=== PATIENT | female | born 1975 | race Caucasian/White ===

== ENCOUNTER 2020-12-19 06:34 | Day surgery (SDC) | payer OTHER, MEDICAID, SELFPAY ==
[2020-10-06 09:31] VITALS: BMI 32.2
--- NOTE | 2020-10-09 10:15 | P.CONAN_ITS ---
HPI - Anesthesia Eval Consult details Narrative: 45yo F for Colonoscopy [facility] Past Medical History Medical History (Updated 10/06/20 @ 09:15 by Allison Oliver) Congenital deafness Surgical History Surgical History (Updated 10/06/20 @ 09:15 by Allison Oliver) History of cochlear implant History of nasal surgery Hx of craniotomy Social History Social History Smoking Status: Unknown if ever smoked Use of substances other than those prescribed or required for medical reasons: No Meds Allergies Allergy/AdvReac Type Severity Reaction Status Date / Time phenytoin [From Dilantin] Allergy Unknown Verified 10/06/20 09:31 Home Medications Medication Instructions Recorded Confirmed Type No Known Home Meds 10/06/20 10/06/20 History Exam Exam Date and Time: October 09, 2020 1015 Height,Weight and Vital Signs: Height 5 ft 4 in Weight 85.275 kg Assessment and Plan Assessment Anesthesia Assessment: Chart Reviewed
--- NOTE | 2020-12-18 10:23 | P.CONAN_ITS ---
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 [facility] Past Medical History Medical History (Updated 10/06/20 @ 09:15 by Allison Oliver) Congenital deafness Surgical History Surgical History (Updated 10/06/20 @ 09:15 by Allison Oliver) History of cochlear implant History of nasal surgery Hx of craniotomy Social History Social History Smoking Status: Unknown if ever smoked Use of substances other than those prescribed or required for medical reasons: No Advance Directives: No Advance Directives Information Provided: No Meds Allergies Allergy/AdvReac Type Severity Reaction Status Date / Time phenytoin [From Dilantin] Allergy Unknown Verified 10/06/20 09:31 Home Medications Medication Instructions Recorded Confirmed Last Taken Type No Known Home Meds 10/06/20 10/06/20 Unknown History Exam Exam Date and Time: December 18, 2020 1023 Height,Weight and Vital Signs: Height 5 ft 4 in Weight 85.275 kg Assessment and Plan Assessment Anesthesia Assessment: Chart Reviewed
[2020-12-19 07:00] VITALS: BP 105/69; PULSE 77; RESP 16; TEMP 36.9; O2SAT 97
[2020-12-19 07:04] LABS: UPreg QC Valid YES; Urine Pregnancy NEGATIVE (NEGATIVE)
[2020-12-19] MEDS: Lactated Ringers 1,000 ML 100 ML IVCONT (07:19)
[2020-12-19 08:32] VITALS: BP 96/41; PULSE 66; RESP 16; TEMP 36.4; O2SAT 96
--- NOTE | 2020-12-19 08:39 | PM.OP ---
Brief Operative Note Date of Service: 12/19/20 Pre-op diagnosis: Rectal bleed Post-op diagnosis: other (Colon polyps) Procedure: Colonoscopy to the cecum with snare polypectomy, placement of Resolution clip on cecal polypectomy site, and biopsy/removal of polyps Surgeon: Wilfredo Orantes Anesthesia: MAC Estimated blood loss (mL): 4.0 Pathology: other (A. Small cecal polyp near appendiceal orifice B. Larger cecal polyp C. Polyps at 20cm D. Rectal polyp) Condition: stable Disposition: PACU
[2020-12-19 08:47] VITALS: BP 99/57; PULSE 68; RESP 16; TEMP 36.4; O2SAT 95
--- NOTE | 2020-12-19 09:20 | OP_ITS ---
SURGEON: Wilfredo Orantes MD INDICATIONS: The patient presents for evaluation of intermittent hematochezia. PREOPERATIVE DIAGNOSIS: Hematochezia. POSTOPERATIVE DIAGNOSIS: PROCEDURE PERFORMED: Colonoscopy to the cecum and terminal ileum with snare polypectomy, biopsy and removal of polyps, and placement of 1 resolution clip on the cecal polypectomy site. Full consent has been obtained from her for this, including risks of bleeding and perforation. ESTIMATED BLOOD LOSS: COMPLICATIONS: ANESTHESIA: Monitored anesthesia care. ASSISTANTS: SPECIMENS: POSTOPERATIVE DIAGNOSES: Hematochezia, colon polyps, internal hemorrhoids. DESCRIPTION OF PROCEDURE: The patient was placed in the left lateral decubitus position. The digital rectal exam revealed no abnormalities. The Olympus video pediatric colonoscope was entered into the rectum advanced easily to the cecum. Once in the cecum, I did identify cecal pouch with appendiceal orifice and a normal-appearing ileocecal valve. The terminal ileum was cannulated and appeared normal. The scope was withdrawn back in the colon. Just adjacent to the appendiceal orifice, was an approximately 4 mm polyp, which was biopsied and completely removed with cold biopsy forceps. Also in the cecum, was a larger approximately 1.5 cm polyp on a short stalk, which was snared and recovered by bringing it out in a retrieval net. The scope was advanced back to the polypectomy site, which appeared clean, without any sign of residual polyp nor bleeding. I did place a single resolution clip on the polypectomy site with good deployment and good hemostasis. The remainder of the cecum appeared normal. The scope was then slowly withdrawn assessing all mucosal surfaces carefully. Preparation was excellent. At 20 cm, were 2 approximately 3 or 4 mm polyps, which were each biopsied and completely removed with cold biopsy forceps and placed in the same container. I did not visualize any sign of colitis nor angiodysplasia. In the rectum, in the retroflexed position, was an approximately 8 mm polyp, which was snared and recovered by suction. The polypectomy site appeared clean, without any sign of residual polyp nor bleeding. Small internal hemorrhoids were noted as well. The scope was straightened and withdrawn from the patient. She tolerated the procedure well and was returned to recovery area in stable condition. IMPRESSION: 1. Colon polyps, status post snare polypectomy, and biopsy removal. 2. Placement of resolution clips on cecal polypectomy site. 3. Internal hemorrhoids. PLAN: The results of the pathology will be checked. Given the larger cecal polyp and her relatively young age, I would recommend a repeat colonoscopy in 3 years for further surveillance. She was advised not to use any aspirin and NSAIDs for 1 week. She was advised to see me again later in the year in relation to her elevated LFTs, and need for a followup CAT scan of the liver. MD RENAN Zamorano/JULIUS / [id number]
== END 2020-12-19 09:25 | disposition home or self-care (01) ==
PROVIDERS: Nurse Practitioner; PCP Nurse Practitioner; Visit Provider Internal Medicine
PROC: 0DJD8ZZ Inspection of Lower Intestinal Tract, Via Natural or Artificial Opening Endoscopic (ICD-10-PCS; CPT 45378; principal; 2020-12-19 07:30)
DX: K62.5 Hemorrhage of anus and rectum (principal); D12.0 Benign neoplasm of cecum; D12.5 Benign neoplasm of sigmoid colon; D12.8 Benign neoplasm of rectum; K64.8 Other hemorrhoids; K76.9 Liver disease, unspecified; H90.5 Unspecified sensorineural hearing loss; Z88.8 Allergy status to other drugs, medicaments and biological substances
CPT/HCPCS: 45385; 45380; 81025; 88305

== ENCOUNTER 2021-09-22 10:04 | Outpatient (REF) | payer OTHER, MEDICAID, SELFPAY ==
[2021-09-22 14:26] LABS: MANUAL DIFF FLAG NO
[2021-09-22 14:38] LABS: Basophils Percent Auto 0.5 % (0-2); Eosinophils Absolute Auto 0.2 X10*3/uL (0.0-0.4); Eosinophils Percent Auto 1.9 % (0-4); Hematocrit 44.8 % (37.0-47.0); Hemoglobin 14.8 g/dl (12.0-16.0); Imm Gran Abs Auto 0.07 X10*3/uL (0.00-0.03); Imm Gran Pct Auto 0.9 % (0.0-0.4); Lymphocytes Absolute Auto 2.5 X10*3/uL (1.2-4.9); Mean Corpuscular Hemoglobin 28.7 pg (27.0-33.0); Mean Platelet Volume 10.1 fL (9.4-12.3); Monocytes Absolute Auto 0.4 X10*3/uL (0.1-1.2); Monocytes Percent Auto 4.5 % (2-11); Neutrophils Absolute Auto 4.8 x10*3/uL (2.0-8.3); Neutrophils Percent Auto 60.2 % (45-73); Platelet Count 358 X10*3/uL (160-400); Red Blood Count 5.15 X10*6/uL (4.20-5.50); Red Cell Distribution Width 12.2 % (11.0-16.0); White Blood Count 7.9 X10*3/uL (4.8-10.8)
[2021-09-22 15:06] LABS: Alanine Aminotransferase 40 U/L (0-31); Alkaline Phosphatase 90 U/L (39-117); Aspartate Amino Transferase 37 U/L (5-31); Bilirubin Direct < 0.2 mg/dL (0.0-0.5); Bilirubin Total 0.4 mg/dL (0.0-1.0); Blood Urea Nitrogen 11 mg/dL (9-16); C Reactive Protein 1.06 mg/dL (< or = 0.50); Estimated Glomerular Filt Rate > 60; Iron 118 mcg/dL (30-160); Percent Iron Saturation 32 % (15-50); Total Iron Binding Capacity 373 mcg/dL (228-428); Unsaturated Iron Binding 255 ug/dL
[2021-09-22 15:13] LABS: Erythrocyte Sedimentation Rate 12 MM/HR (0-20)
[2021-09-22 15:27] LABS: Ferritin 80 ng/mL (10-250)
[2021-09-24 11:36] LABS: Alpha 1 Anti-trypsin 142 mg/dL (83-199)
[2021-09-24 11:55] LABS: Alpha Fetoprotein 2.4 ng/mL
[2021-09-24 12:57] LABS: Anti Nuclear Antibody Screen NEGATIVE (NEGATIVE)
[2021-09-25 15:56] LABS: Mitochondrial Antibodies NEGATIVE (NEGATIVE)
[2021-09-25 22:01] LABS: Smooth Muscle Antibody <20 U (<20)
== END 2021-09-22 10:05 | disposition home or self-care (01) ==
LOC: HO.10HDL 10:04
PROVIDERS: Visit Provider Internal Medicine
DX: R93.2 Abnormal findings on diagnostic imaging of liver and biliary tract (principal); K76.9 Liver disease, unspecified; R74.8 Abnormal levels of other serum enzymes
CPT/HCPCS: 36415; 80076; 82103; 82105; 82378; 82565; 82728; 83540; 84520; 85025; 85652; 86038; 86039; 86140; 86255; 86256

== ENCOUNTER 2021-12-07 08:29 | Outpatient (REF) | payer OTHER, MEDICAID, SELFPAY ==
--- NOTE | ~2021-12-07 | CT_ITS ---
EXAMINATION: CT ABDOMEN AND PELVIS WITHOUT AND WITH CONTRAST CLINICAL INFORMATION: Liver disease. Hemangioma. COMPARISON: None TECHNIQUE: Multidetector volumetric imaging was performed of the abdomen and pelvis before and after the IV administration of 85 mL of Omnipaque 300 intravenous contrast. Sagittal and coronal reformatted images were obtained on the technologist's workstation. This CT examination was performed using dose optimization techniques as appropriate, variously including the following: *Automated exposure control *Adjustment of mA and/or kV according to patient size (this includes techniques or standardized protocols for targeted exams where dose is matched to indication/reason for exam; i.e. extremities or head) *Use of iterative reconstruction technique DLP: 1128 mGy-cm FINDINGS: LUNG BASES: The visualized lung bases are unremarkable. LIVER, GALLBLADDER, AND BILIARY TREE: The liver is enlarged, right lobe measuring 20 cm. There is a 2 x 3.3 cm lesion in the lateral segment of the left lobe of the liver. This demonstrates homogeneous enhancement and remains enhanced on all postcontrast sequences matching that of blood pool. This probably represents a hemangioma. No other focal liver lesion is seen. PANCREAS: Unremarkable. SPLEEN: Unremarkable. ADRENAL GLANDS: Unremarkable. KIDNEYS AND URETERS: There are several small low-attenuation bilateral renal lesions. These are difficult to characterize due to small size but may represent small cysts. The kidneys are otherwise unremarkable. BLADDER: Unremarkable. GASTROINTESTINAL TRACT: There is mild diverticulosis of the colon. The small and large bowel are otherwise unremarkable. The appendix is unremarkable. ABDOMINAL WALL: No significant hernia is appreciated. LYMPH NODES: Normal. VASCULAR: Unremarkable. PELVIC VISCERA: There is a 1 cm low-attenuation lesion in the anterior uterine body probably representing a fibroid. There is a 5 mm fatty lesion in the left ovary probably representing a dermoid and 1.5 cm left ovarian cyst. The right ovary appears unremarkable. OSSEOUS STRUCTURES: Unremarkable. CT/CT abdomen pelvis wo/w con IMPRESSION: Enlarged fatty liver. 2 x 3.3 cm lesion in the lateral segment of the left lobe of the liver probably representing a hemangioma. Bilateral small low-attenuation renal lesions probably representing small cysts. Mild diverticulosis of the colon. Probable small left ovarian dermoid and uterine fibroid. Fleischner guidelines were followed.
[2021-12-07] MEDS: iohexoL 350 MG/ML 100 ML INFUS..BTL IV (09:40)
== END 2021-12-07 08:30 | disposition home or self-care (01) ==
LOC: HO.CT 08:29
PROVIDERS: Visit Provider Internal Medicine
DX: K76.9 Liver disease, unspecified (principal)
CPT/HCPCS: 74178; Q9967

== ENCOUNTER 2022-12-24 08:27 | Outpatient (REF) | payer OTHER, MEDICAID, SELFPAY ==
--- NOTE | ~2022-12-24 | US_ITS ---
EXAMINATION: US COMPLETE ABDOMEN WITH LIVER ELASTOGRAPHY CLINICAL INFORMATION: Abnormal liver. Liver lesion. COMPARISON: None available. TECHNIQUE: Real-time imaging of the abdominal viscera. Noninvasive ultrasound liver fibrosis assessment is performed using Dionna ElastPQ point quantification shear wave elastography (2D-SWE) with a C5-2 MHz transducer. Multiple elastography samples are obtained. FINDINGS: PANCREAS: Not well visualized due to bowel gas ABDOMINAL AORTA: Not well visualized due to bowel gas INFERIOR VENA CAVA: Not well visualized due to bowel gas LIVER: Liver echotexture is increased probably representing fatty infiltration. There is a 2.2 x 1.6 x 2.8 cm low-attenuation lesion high in the left lobe of. This likely corresponds to lesion seen on CT 12/07/2021. There is a 7 x 8 x 9 mm hypoechoic lesion in the right lobe. Question corresponding to a hypervascular area in the right lobe axial image [address] scan. There is low-attenuation in the liver adjacent to the gallbladder suggestive of area of focal fatty sparing. No biliary duct dilatation. The right lobe measures 18 cm in length. The left lobe measures 12 cm in length. Portal flow is normal/hepatopedal Shear wave liver elastography median stiffness is 1.4 m/s (reference: normal median stiffness is 1.3 m/s or less). IQR/median stiffness to assess sampling precision is 0.09 (reference: good quality data set is IQR/median stiffness of 0.15 or less). GALLBLADDER: Normal. The gallbladder is physiologically distended without evidence of stones, sludge, polyps, wall thickening or pericholecystic fluid. COMMON BILE DUCT: Not well visualized. The visualized common bile duct is Normal in caliber measuring 0.4 cm in diameter. RIGHT KIDNEY: Normal. No hydronephrosis. No renal calculi or focal parenchymal lesions. The kidney measures 11.7 cm in maximum dimension. LEFT KIDNEY: Small 4 x 5 mm echogenic area in the lower pole. No hydronephrosis. The kidney measures 11.3 cm in maximum dimension. SPLEEN: Normal. The spleen measures 11 cm in maximum dimension. FREE FLUID: None. US/US abdomen comp w elastography IMPRESSION: 1. Impression: Limited exam due to bowel gas. Echogenic liver suggestive of fatty infiltration. 2 focal hypoechoic lesions, question representing hemangiomas. Limited visualization of the pancreas, aorta and IVC. Small nonspecific echogenic focus in the lower pole of the left kidney. 2. Liver elastography: Adequate liver sampling. In the absence of other known clinical signs, rules out compensated advanced chronic liver disease. REFERENCE: Society of Radiologists in Ultrasound Liver Stiffness Thresholds (2020): LIVER STIFFNESS THRESHOLDS: *Liver Stiffness equal or less than 1.3 m/s: High probability of being normal. *Liver Stiffness less than 1.7 m/s: In the absence of other known clinical signs, rules out compensated advanced chronic liver disease. *Liver Stiffness 1.7-2.1 m/s: Suggestive of compensated advanced chronic liver disease but need further test for confirmation. *Liver Stiffness over 2.1 m/s: Rules in compensated advanced chronic liver disease. *Liver Stiffness over 2.4 m/s: Suggestive of clinically significant portal hypertension. QUALITY OF DATA SET: *IQR/Median value equal or less than 0.15 implies a quality data set. *IQR/Median value over 0.15 implies a poor quality data set. SIGNIFICANT CHANGE FROM PRIOR EXAM: Significant change if liver stiffness measurement is 10% or greater from prior exam. OTHER CONSIDERATIONS: The stage of liver fibrosis may be overestimated in the setting of acute hepatitis, liver inflammation, elevated liver function tests, hepatic vascular congestion, obstructive cholestasis, non-fasting state, and infiltrative diseases such as amyloidosis and lymphoma. In some patients with NAFLD, the liver stiffness thresholds for compensated advanced chronic liver disease may be lower. In causes other than viral hepatitis and NAFLD, liver stiffness thresholds are not well established.
== END 2022-12-24 08:28 | disposition home or self-care (01) ==
LOC: HO.US 08:27
PROVIDERS: Visit Provider Internal Medicine
DX: R93.2 Abnormal findings on diagnostic imaging of liver and biliary tract (principal); K76.9 Liver disease, unspecified
CPT/HCPCS: 76705; 76981

== ENCOUNTER 2023-01-14 15:05 | Outpatient (REF) | payer OTHER, MEDICAID, SELFPAY ==
[2023-01-14 15:16] LABS: MANUAL DIFF FLAG NO
[2023-01-14 15:30] LABS: Basophils Absolute Auto 0.1 X10*3/uL (0.0-0.2); Basophils Percent Auto 0.9 % (0-2); Eosinophils Absolute Auto 0.4 X10*3/uL (0.0-0.4); Eosinophils Percent Auto 4.2 % (0-4); Hematocrit 43.6 % (37.0-47.0); Hemoglobin 14.9 g/dl (12.0-16.0); Imm Gran Abs Auto 0.14 X10*3/uL (0.00-0.03); Imm Gran Pct Auto 1.3 % (0.0-0.4); Lymphocytes Absolute Auto 3.5 X10*3/uL (1.2-4.9); Lymphocytes Percent Auto 33.9 % (20-40); Mean Corpuscular HGB Conc 34.2 g/dl (31.0-35.0); Mean Platelet Volume 8.9 fL (9.4-12.3); Monocytes Absolute Auto 0.6 X10*3/uL (0.1-1.2); Neutrophils Absolute Auto 5.6 x10*3/uL (2.0-8.3); Neutrophils Percent Auto 53.7 % (45-73); Platelet Count 323 X10*3/uL (160-400); Red Blood Count 5.13 X10*6/uL (4.20-5.50); Red Cell Distribution Width 12.1 % (11.0-16.0); White Blood Count 10.4 X10*3/uL (4.8-10.8)
[2023-01-14 15:39] LABS: Prothrombin Time 11.5 SEC (10.0-13.1)
[2023-01-14 16:02] LABS: Alanine Aminotransferase 94 U/L (0-31); Albumin Level 4.1 g/dL (3.5-5.0); Alkaline Phosphatase 101 U/L (39-117); Aspartate Amino Transferase 91 U/L (5-31); Bilirubin Direct 0.1 mg/dL (0.0-0.5); Bilirubin Total 0.3 mg/dL (0.0-1.0)
[2023-01-20 16:08] LABS: FIB-ALT 86 U/L (6-29); FIB-Alpha-2-Macroglobulin 233 mg/dL (106-279); FIB-Apolipoprotein A1 149 mg/dL (101-198); FIB-GGT 71 U/L (3-55); FIB-Haptoglobin 288 mg/dL (43-212); FIB-Total Bilirubin 0.3 mg/dL (0.2-1.2); Liver Fibrosis Score 0.15; Liver Fibrosis Stage F0; Nec Inflam Act Grade A1-A2; Nec Inflam Act Score 0.45
== END 2023-01-14 15:06 | disposition home or self-care (01) ==
LOC: HO.LAB 15:05
PROVIDERS: Visit Provider Internal Medicine
DX: R93.2 Abnormal findings on diagnostic imaging of liver and biliary tract (principal); R74.8 Abnormal levels of other serum enzymes; K76.9 Liver disease, unspecified
CPT/HCPCS: 36415; 80076; 81596; 85025; 85610

== ENCOUNTER 2023-01-17 09:19 | Day surgery (SDC) | payer OTHER, MEDICAID, SELFPAY ==
--- NOTE | 2023-01-17 09:02 | HO.ANESPROP2 ---
HPI - Anesthesia Eval Consult details Narrative: for colonoscopy [facility] Past Medical History Medical History (Updated 01/14/23 @ 14:16 by Deandar Johnson, RN) Congenital deafness Elevated LFTs IBS (irritable bowel syndrome) Family History Family history of problems with anesthesia: No Surgical History Surgical History (Updated 10/06/20 @ 09:15 by Allison Oliver RN) History of cochlear implant History of nasal surgery Hx of craniotomy History of Problems with Anesthesia: No Meds Allergies Allergy/AdvReac Type Severity Reaction Status Date / Time phenytoin [From Dilantin] Allergy Unknown Verified 10/06/20 09:31 Home Medications Medication Instructions Recorded Confirmed Last Taken Type No Known Home Meds 10/06/20 10/06/20 Unknown History Exam Exam Date and Time: January 17, 2023901 Airway Mallampati Class: II TM Dist: >3cm Neck ROM: Full Heart: rrr Lungs: cta Assessment and Plan Assessment Anesthesia Assessment: Anesthesia Plan Discussed and Chart Reviewed Final Anesthetic Review Family History of Problems with Anesthesia: No History of Problems with Anesthesia: No NPO: Yes ASA Class: II Final Preanesthetic Review: No Changes in Pt Med Stat, Meds/Allgs Chart Reviewed, Consent Obtained/Reviewed and Anes Risks/Benef Reviewed Patient Risk: Low Procedure Risk: Low Anesthetic Plan Anesthetic Plan: MAC: Disposition: Standard PACU
[2023-01-17 10:30] VITALS: BMI 31.7
[2023-01-17 10:41] LABS: UPreg QC Valid YES
[2023-01-17 10:44] LABS: Urine Pregnancy NEGATIVE (NEGATIVE)
[2023-01-17 10:48] VITALS: BP 129/67; PULSE 76; RESP 16; TEMP 35.8; O2SAT 96
--- NOTE | 2023-01-17 11:54 | P.BOP_ITS ---
Brief Operative Note Date of Service: 01/17/23 Pre-op diagnosis: Screening Post-op diagnosis: other (Colon polyps) Procedure: Colonoscopy to the cecum and TI with bx/removal of polyps Surgeon: Wilfredo Orantes Anesthesia: MAC Was an Gyroscopic Instrument Mechanic used for this Procedure?: No Estimated blood loss (mL): 2.0 Pathology: other (A. Cecal polyps) Condition: stable Disposition: PACU
[2023-01-17 11:56] VITALS: BP 105/59; PULSE 68; RESP 16; TEMP 36.1; O2SAT 98
[2023-01-17 12:11] VITALS: BP 110/65; PULSE 74; RESP 16; TEMP 36.1; O2SAT 97
--- NOTE | 2023-01-17 15:06 | OP_ITS ---
DATE OF SERVICE: 01/17/2023 SURGEON: Wilfredo Orantes MD INDICATIONS: The patient presents for evaluation of personal history of colon polyps and colorectal cancer screening. Full consent has been obtained from her for this, including risks of bleeding and perforation. PREOPERATIVE DIAGNOSIS: POSTOPERATIVE DIAGNOSIS: PROCEDURE PERFORMED: Colonoscopy to the cecum and terminal ileum with biopsy and removal of polyps. ESTIMATED BLOOD LOSS: COMPLICATIONS: ANESTHESIA: Monitored anesthesia care. ASSISTANTS: SPECIMENS: PREOPERATIVE DIAGNOSES: Personal history of colon polyps and colorectal cancer screening. POSTOPERATIVE DIAGNOSES: Personal history of colon polyps and colorectal cancer screening, small colon polyp, diverticulosis and internal hemorrhoids. DESCRIPTION OF PROCEDURE: The patient was placed in the left lateral decubitus position. The digital rectal exam revealed no abnormalities. The Olympus video pediatric colonoscope was entered into the rectum and advanced easily to the cecum. Once in the cecum, I did identify cecal pouch with appendiceal orifice and a normal-appearing ileocecal valve. The terminal ileum was cannulated and appeared normal. The scope was withdrawn back in the colon. The entire cecum was well visualized. In the cecum, there were 2 flat approximately 3 or 4 mm polyps which were each biopsied and completely removed with cold biopsy forceps. One of the polyps appeared to be somewhat inflammatory in appearance. The remainder of the cecum appeared normal. The scope was then slowly withdrawn assessing all mucosal surface carefully. Preparation was excellent. I do not visualize any other polyps, colitis, nor angiodysplasia. There was mild amount of sigmoid diverticulosis. In the rectum, the scope was retroflexed visualizing internal hemorrhoids, but no other pathology. The rectal mucosa appeared normal. The scope was straightened out and withdrawn from the patient. She tolerated the procedure well and was returned to the recovery area in stable condition. IMPRESSION: 1. Small colon polyps. 2. Diverticulosis. 3. Internal hemorrhoids. PLAN: The results of the biopsies will be checked. I would recommend a repeat colonoscopy in 3 years. She was advised not to use any aspirin or NSAIDs for 1 week. She will be seen in the office in the Fall for a followup of her elevated LFTs. The most recent ones were somewhat more elevated than previously. If they do remain elevated, at some point, she may need a liver biopsy for further evaluation to rule out any component of significant steatohepatitis and/or liver fibrosis. MD RENAN Zamorano/JULIUS / [id number] CHAD
== END 2023-01-17 13:02 | disposition home or self-care (01) ==
PROVIDERS: Anesthesiology; Visit Provider Internal Medicine
PROC: 0DJD8ZZ Inspection of Lower Intestinal Tract, Via Natural or Artificial Opening Endoscopic (ICD-10-PCS; CPT 45378; principal; 2023-01-17 10:40)
DX: Z12.11 Encounter for screening for malignant neoplasm of colon (principal); Z86.010 Personal history of colon polyps; D12.0 Benign neoplasm of cecum; K57.30 Diverticulosis of large intestine without perforation or abscess without bleeding; K64.8 Other hemorrhoids; K58.9 Irritable bowel syndrome, unspecified; K76.9 Liver disease, unspecified; R74.8 Abnormal levels of other serum enzymes
CPT/HCPCS: 45380; 81025; 88305; J2250

== ENCOUNTER 2023-03-25 19:09 | Emergency (ER) | payer OTHER, MEDICAID, SELFPAY ==
--- NOTE | ~2023-03-25 | XR_ITS ---
EXAMINATION: XR FOOT, LEFT CLINICAL INFORMATION: Left foot pain COMPARISON: None available. TECHNIQUE: AP, lateral, and oblique views of the left foot. FINDINGS: The soft tissues are normal. No fracture. Alignment is anatomic. Joint spaces are maintained. There is chronic nonunion/nonfusion at the base of the fifth metatarsal. 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
--- NOTE | ~2023-03-25 | XR_ITS ---
EXAMINATION: XR ANKLE, LEFT CLINICAL INFORMATION: Left ankle pain COMPARISON: None available. TECHNIQUE: AP, lateral, and mortise views of the left ankle. FINDINGS: The soft tissues are normal. 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 Alignment is anatomic. Joint spaces are maintained. No joint effusion. 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
[2023-03-25 19:16] VITALS: BP 126/55; PULSE 77; RESP 18; TEMP 36.7; O2SAT 96
--- NOTE | 2023-03-25 19:17 | ED.GENADULT ---
HPI - General Adult General Chief complaint: Extremity Injury, Lower Stated complaint: side of left foot broken? fell Time Seen by Provider: 03/25/23 19:28 Source: patient Mode of arrival: wheelchair Limitations: no limitations History of Present Illness HPI narrative: Patient is a 48-year-old female who presents emergency department for evaluation of left lateral foot/lateral ankle pain. She states that she was walking out of her front door when she had a mechanical trip causing a twisting injury to her foot. She denies any prior injury to this foot. Denies any numbness or tingling or cold sensation to the foot. There was no head strike or loss of consciousness. She was unable to bear weight after the injury due to the amount of pain. Related Data Previous Rx's Medication Instructions Recorded oxycodone 5 mg tablet 5 mg PO Q6H PRN pain #14 tabs 03/25/23 Allergies Allergy/AdvReac Type Severity Reaction Status Date / Time phenytoin [From Dilantin] Allergy Unknown Verified 10/06/20 09:31 Review of Systems Review of Systems: Yes all other systems are reviewed and are negative [facility] Past Medical History Attestation statement: The following information was validated with the patient. Source: old records reviewed Medical History Congenital deafness Elevated LFTs IBS (irritable bowel syndrome) Surgical History History of cochlear implant History of nasal surgery Hx of craniotomy Social History Social History Patient Tobacco Use Status: Never used Tobacco Advance Directives: No Advance Directives Information Provided: No Physical Exam ED Vital Signs: Vital Signs - 24 hr 03/25/23 19:16 Temperature 98.1 F Pulse Rate 77 Respiratory Rate 18 Blood Pressure 126/55 L Pulse Oximetry 96 Oxygen Delivery Method Room Air BMI result Body Mass Index 30.0 Appearance: Alert.?Oriented to person, place and time. No acute distress.?Normal affect. Neck: Normal inspection.? Neck supple.?? CVS: Heart sounds normal. Normal heart rate and rhythm.? Pulses normal.?? Respiratory: No respiratory distress.? Lung sounds clear to auscultation bilaterally?? Skin: Skin warm and dry.? Normal skin color.? Extremities: No lower extremity edema.? No calf ttp. Localized pain and swelling to the left lateral foot and left lateral malleolus, with point tenderness along the 5th metatarsal, decreased AROM to the ankle.. 2+ DP/PT pulse present bilaterally. CMS intact Neuro: Moves all extremities spontaneously. Sensation intact bilaterally. No focal neuro deficits. Ambulates with antalgic gait, nonweightbearing to left foot due to pain. Course Course Course Narrative: This is an RME: Additional HPI, ROS, PE not included below will be deferred to primary provider. 48 yo f presents w/ l foot pain sp rolling foot while going down the steps was wearing flip flops. No headstrike or loc not on thinenrs. No numbness or tingling Plan- imaging Medical Decision Making Medical Decision Making [facility] Narrative: Patient is a 48-year-old female who presents emergency department for evaluation of traumatic left foot/ankle pain as per HPI. She is overall well-appearing. She is unable to bear weight on the left foot due to pain, her extremities neurovascularly intact distally. I reviewed radiologist impression of XR imaging; no acute fracture or dislocation of the left ankle, there is mention of a chronic nonunion/non fusion of the base of the 5th metatarsal, however given presenting history, physical examination, and point tenderness at the base of the 5th metatarsal I am concerned that this is in fact an acute fracture as opposed to chronic. In addition she has a left ankle sprain. I consulted with Orthopedics on-call; ANGE Ruano , who advised walking boot and weight-bearing as tolerated, if unable to weightbear she can be nonweightbearing and have outpatient follow-up. She was unable to tolerate weight-bearing due to pain. Provided with crutches and instructions on use. Advised rest, ice, elevation, acetaminophen/ibuprofen, oxycodone for severe pain, discussed precautions with use. Provided with contact information for orthopedic. Reviewed worrisome signs and symptoms that would warrant re-evaluation emergency department. All questions answered. Stable for discharge. Differential Diagnosis Differential Diagnoses: The differential diagnosis associated with the presentation includes (Fracture, dislocation, sprain, gout) Consult Healthcare Provider Management of the patient was discussed with: Public Welfare Director (Orthopedics as per MDM narrative) Radiology Impression Discussion of test interpretation with radiology: I have reviewed the radiologist's reading. 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 External Record Review External record reviewed: Other (I reviewed mass Pat prior to oxycodone prescription, no conflict) Prescription Management I considered prescription management with: Pain Medication (As noted in MDM) Discharge Plan Discharge Clinical Impression: Fracture of fifth metatarsal bone Qualifiers: Encounter type: initial encounter Fracture type: closed Fracture alignment: nondisplaced Laterality: left Qualified Code(s): S92.355A - Nondisplaced fracture of fifth metatarsal bone, left foot, initial encounter for closed fracture Ankle sprain Qualifiers: Encounter type: initial encounter Laterality: left Instructions: Ankle Sprain (ED), Crutch Instructions (ED), Foot Fracture in Adults (ED), R.I.C.E. Treatment (ED), Walking Boot (ED) Additional Instructions: As discussed, your x-rays concerning for a fracture in your foot. Please to not bear weight on this foot as you were unable to tolerate this despite the use of the walking boot. Use the crutches at all times while weight-bearing. You can take ibuprofen 200 mg, 3 tablets (600mg) every 6-8 hours as needed for pain, in addition to Tylenol 500 mg, 2 tablets (1,000mg) every 4-6 hours as needed for pain, but not to exceed 3 doses daily (3,000mg).? I sent a prescription for oxycodone to your pharmacy to use for severe pain unrelieved by acetaminophen/ibuprofen. Oxycodone is a narcotic/opiate medication, it can be addicting, and it may make you drowsy. You should not drive, drink alcohol, or work while taking this medication. If you develop any new or worsening symptoms or concerns she can return back to emergency department. I provided the contact information for the orthopedic department, please call their office Tuesday morning to arrange for a follow-up visit. Prescriptions: New oxycodone 5 mg tablet 5 mg PO Q6H PRN (Reason: pain) Qty: 14 0RF Rx Instructions: Partial Fill upon patient request. Referrals: Art Benavidez PA-C [Physician Advertising Layout Worker] -
== END 2023-03-25 21:56 | disposition home or self-care (01) ==
LOC: HO.ED 19:31
PROVIDERS: Emergency Provider Student in an Organized Health Care Education/Training Program
DX: S92.355A Nondisplaced fracture of fifth metatarsal bone, left foot, initial encounter for closed fracture (principal); S93.402A Sprain of unspecified ligament of left ankle, initial encounter; X50.1XXA Overexertion from prolonged static or awkward postures, initial encounter; Y93.89 Activity, other specified; Y92.018 Other place in single-family (private) house as the place of occurrence of the external cause; Y99.9 Unspecified external cause status
CPT/HCPCS: 73610; 73630; 99282; 99283

== ENCOUNTER → 2023-04-01 10:01 | Outpatient (BNVA) | payer OTHER, MEDICAID, SELFPAY | PROVIDERS: Visit Provider Physician Assistant ==

== ENCOUNTER 2023-05-26 07:22 | Outpatient (REF) | payer BC, OTHER, SELFPAY ==
--- NOTE | ~2023-05-26 | XR_ITS ---
EXAMINATION: XR FOOT, LEFT CLINICAL INFORMATION: Left foot pain COMPARISON: 03/25/2023 TECHNIQUE: AP, lateral, and oblique views of the left foot. FINDINGS: Mineralization is normal. There is no acute fracture or dislocation. There is a persistent transverse lucency at the base of the fifth metatarsal consistent with an ununited fracture. The joint spaces appear preserved. No focal soft tissue swelling is appreciated. XR/XR foot LT min 3V IMPRESSION: Ununited fracture of the base of the fifth metatarsal without significant change from prior examination.
== END 2023-05-26 07:23 | disposition home or self-care (01) ==
LOC: HO.HOSX 07:22
PROVIDERS: Visit Provider Physician Assistant
DX: S92.355D Nondisplaced fracture of fifth metatarsal bone, left foot, subsequent encounter for fracture with routine healing (principal)
CPT/HCPCS: 73630

== ENCOUNTER 2023-05-26 13:43 | Outpatient (AMB) | payer BC, SELFPAY ==
--- NOTE | 2023-05-26 13:59 | MHC.OFFVIS ---
Intake Vital Signs 05/26/23 14:06 Height 5 ft 5 in Weight 180 lb BMI 30.0 Intake Visit Reasons: OV- LT 5th metatarsal fx with xrays Intake Note: Ana Paula is a 48 year old female who presents today for a fracture care appointment for her right ankle fx, 03/25/23. Patient reports she is doing well, but continues to have soreness. Patient reports pain in her right knee. Allergies phenytoin [From Dilantin] Allergy (Verified 05/26/23 14:05) Unknown HPI OV- LT 5th metatarsal fx with xrays HPI Details 48-year-old female who returns to the office today for a follow-up of left 5th metatarsal fracture, 03/25/23. She states she has no pain but continues to have soreness in her finger. She is doing well overall and has no other concerns today. [facility] Medical History Congenital deafness Elevated LFTs IBS (irritable bowel syndrome) Surgical History History of cochlear implant History of nasal surgery Hx of craniotomy Social History Patient Tobacco Use Status: Never used Tobacco Review of Systems Const All systems reviewed & are unremarkable except as noted in HPI and below Physical Exam Vital Signs: BMI result Body Mass Index 30.0 Extrem Other: Left foot skin intact. There is mild tenderness at the base of the 5th metatarsal. Sensation intact. EHL intact. No pain along the mediolateral malleolus. Neurovascularly intact. Results Reviewed Results Reviewed: xrays of the left foot obtained in the office today show non displaced fracture at the base of the 5th metatarsal with interval healing. Assessment & Plan Assessment & Plan (1) Fracture of fifth metatarsal bone: Code(s): S92.353A - Displaced fracture of fifth metatarsal bone, unspecified foot, initial encounter for closed fracture Qualifiers: Encounter type: initial encounter Fracture alignment: nondisplaced Fracture type: closed Laterality: left Qualified Code(s): S92.355A - Nondisplaced fracture of fifth metatarsal bone, left foot, initial encounter for closed fracture Plan She was given an order for physical therapy to work on ROM, gentle strengthening and proprioceptive training. She will increase activity as tolerated and if symptoms persist or worsens, patient will contact the office, otherwise follow-up as needed. Orders: Orders XR foot LT min 3V Today M79.672 - Pain in left foot PT Evaluation and Treatment Today S92.353A - Displaced fracture of fifth metatarsal bone, unspecified foot, initial encounter for closed fracture Patient Instructions: Scribed for Art Benavidez PA-C, by Wesley Santana medical records technician, on 05/26/2023 at 1:45 PM EST. I, Art Benavidez PA-C, have personally reviewed and agree with the information entered by the scribe. Coding Level of Care Code Global (57726) Diagnoses Fracture of fifth metatarsal bone S92.355A Encounter type: initial encounter Fracture alignment: nondisplaced Fracture type: closed Laterality: left
== END 2023-05-26 14:13 | disposition home or self-care (01) ==
PROVIDERS: Visit Provider Physician Assistant
DX: S92.355D Nondisplaced fracture of fifth metatarsal bone, left foot, subsequent encounter for fracture with routine healing (principal)
CPT/HCPCS: 99213

== ENCOUNTER 2023-08-02 16:00 | Outpatient (RCR) | payer BC, OTHER, SELFPAY ==
--- NOTE | 2023-06-28 09:56 | MHC.PT.EP ---
[facility] [place] [facility] [place] Office [place] Office [address] Kaya Reddy [address] [phone] F: [phone] F: [phone] F: [phone] F: [phone] Physical Therapy Plan of Care Date of Evaluation: 06/27/23 Date of Surgery: Diagnosis: Fracture of LEFT 5th metatarsal Assessment: Patient is a 48 y.o. female with cochlear implant who is referred to PT by KRISTINE Weinstein with Dx of Closed, displaced fracture of LEFT 5th metatarsal bone. Patient impairments include pain, limited ROM,, weakness, antalgic gait. Patient current functional limitations are unlevel surfaces are challenging, descending stairs, prolonged standing (more than 10 mins), squat/bend down, getting up out of bed, standing to shower. Patient will benefit from skilled PT to address aforementioned impairments and functional limitations to meet established goals. Frequency and Duration: The patient will be seen 1-2x/week for 4 weeks Short Term Goals: 2 weeks Patient demonstrates consistency and independence with HEP to self manage symptoms. Snf Goals: 4 weeks Patient presents with increased R ankle DF 5 degrees to normalize heel to toe gait pattern on level surfaces. Patient presents with increased R ankle inv/ev strength 5/5 to be able to ambulate on on unlevel surafaces. Treatment Plan: Modalities to reduce pain, spasms and effusion. Manual therapy to restore motion and function. Therapeutic exercise to improve strength and flexibility. Neuromuscular re-education for posture and balance. Therapeutic activities to return to functional activities of daily living. Electronically signed by: Lavern Zarate, PT, DPT Please sign and return to therapist. Thank you for your referral.
--- NOTE | 2023-09-06 15:36 | MHC.PT.DC ---
[facility] [place] Office [place] Office [place] Office [address] Kaya Reddy [address] [phone] F: [phone] F: [phone] F: [phone] F: [phone] Physical Therapy Discharge Report Diagnosis: Fracture of LEFT 5th metatarsal Date of Surgery: Date of Evaluation: 06/27/23 Date of Discharge: 09/06/23 Treatments to Date: 4 Cancellations to Date: 1 No Shows to Date: Discharge Status: Achieved Goals Improved Function Independent with HEP Discharge Summary: Pt independent w/HEP and met all goals. She is therefore discharged from physical therapy. Electronically signed by: Lavern Zarate, PT, DPT Please sign and return to therapist. Thank you for your referral.
== END 2023-09-06 15:39 | disposition home or self-care (01) ==
LOC: HO.PT 16:00
PROVIDERS: PCP Internal Medicine; Visit Provider Physician Assistant
DX: S92.352D Displaced fracture of fifth metatarsal bone, left foot, subsequent encounter for fracture with routine healing (principal)
CPT/HCPCS: 97110; 97161; 97530

== ENCOUNTER 2023-11-23 15:42 | Outpatient (REF) | payer BC, OTHER, SELFPAY ==
[2023-11-23 16:19] LABS: MANUAL DIFF FLAG NO
[2023-11-23 16:28] LABS: Basophils Absolute Auto 0.1 X10*3/uL (0.0-0.2); Basophils Percent Auto 0.7 % (0-2); Eosinophils Absolute Auto 0.2 X10*3/uL (0.0-0.4); Eosinophils Percent Auto 1.6 % (0-4); Hematocrit 45.8 % (37.0-47.0); Hemoglobin 15.3 g/dl (12.0-16.0); Imm Gran Abs Auto 0.07 X10*3/uL (0.00-0.03); Imm Gran Pct Auto 0.6 % (0.0-0.4); Lymphocytes Absolute Auto 3.6 X10*3/uL (1.2-4.9); Lymphocytes Percent Auto 32.7 % (20-40); Mean Corpuscular HGB Conc 33.4 g/dl (31.0-35.0); Mean Corpuscular Hemoglobin 28.7 pg (27.0-33.0); Mean Corpuscular Volume 85.8 fL (80.0-98.0); Mean Platelet Volume 8.9 fL (9.4-12.3); Monocytes Absolute Auto 0.9 X10*3/uL (0.1-1.2); Monocytes Percent Auto 8.2 % (2-11); Neutrophils Absolute Auto 6.2 x10*3/uL (2.0-8.3); Neutrophils Percent Auto 56.2 % (45-73); Platelet Count 367 X10*3/uL (160-400); Red Blood Count 5.34 X10*6/uL (4.20-5.50); Red Cell Distribution Width 12.5 % (11.0-16.0)
[2023-11-23 16:40] LABS: Prothrombin Time 11.7 SEC (11.1-13.3)
[2023-11-23 17:48] LABS: Alanine Aminotransferase 43 U/L (0-31); Alkaline Phosphatase 89 U/L (39-117); Aspartate Amino Transferase 42 U/L (5-31); Bilirubin Direct 0.1 mg/dL (0.0-0.5); Bilirubin Total 0.3 mg/dL (0.0-1.0); Total Protein 7.5 g/dL (6.5-8.0)
[2023-11-30 17:43] LABS: FIB-ALT 37 U/L (6-29); FIB-Alpha-2-Macroglobulin 248 mg/dL (106-279); FIB-Apolipoprotein A1 180 mg/dL (101-198); FIB-GGT 40 U/L (3-70); FIB-Haptoglobin 304 mg/dL (43-212); FIB-Total Bilirubin 0.3 mg/dL (0.2-1.2); Liver Fibrosis Score 0.09; Liver Fibrosis Stage F0; Nec Inflam Act Grade A0; Nec Inflam Act Score 0.15
== END 2023-11-23 15:43 | disposition home or self-care (01) ==
LOC: HO.LAB 15:42
PROVIDERS: Visit Provider Internal Medicine
DX: R79.89 Other specified abnormal findings of blood chemistry (principal); K76.0 Fatty (change of) liver, not elsewhere classified
CPT/HCPCS: 36415; 80076; 81596; 85025; 85610

== ENCOUNTER 2024-01-03 13:50 | Emergency (ER) | payer BC, OTHER, SELFPAY | END 2024-01-03 14:53 | disposition left against medical advice (07) | PROVIDERS: Emergency Provider Emergency Medicine; PCP Internal Medicine | DX: Z53.21 Procedure and treatment not carried out due to patient leaving prior to being seen by health care provider (principal); R10.9 Unspecified abdominal pain ==

== ENCOUNTER 2024-07-03 15:06 | Outpatient (REF) | payer BC, OTHER, SELFPAY ==
[2024-07-03 17:32] LABS: Alanine Aminotransferase 26 U/L (0-31); Albumin Level 3.9 g/dL (3.5-5.0); Alkaline Phosphatase 103 U/L (39-117); Aspartate Amino Transferase 21 U/L (5-31); Bilirubin Direct 0.1 mg/dL (0.0-0.5); Bilirubin Total 0.3 mg/dL (0.0-1.0); Total Protein 7.2 g/dL (6.5-8.0)
== END 2024-07-03 15:07 | disposition home or self-care (01) ==
LOC: HO.LAB 15:06
PROVIDERS: Visit Provider Internal Medicine
DX: R10.9 Unspecified abdominal pain (principal); R74.8 Abnormal levels of other serum enzymes
CPT/HCPCS: 36415; 80076

== ENCOUNTER 2025-07-03 13:37 | Outpatient (REF) | payer BC, OTHER, SELFPAY ==
[2025-07-03 15:26] LABS: Alanine Aminotransferase 34 U/L (0-31); Albumin Level 4.1 g/dL (3.5-5.0); Alkaline Phosphatase 115 U/L (39-117); Aspartate Amino Transferase 40 U/L (5-31); Total Protein 7.1 g/dL (6.5-8.0)
== END 2025-07-03 13:38 | disposition home or self-care (01) ==
LOC: HO.LAB 13:37
PROVIDERS: PCP Physician Assistant; Visit Provider Internal Medicine
DX: K76.0 Fatty (change of) liver, not elsewhere classified (principal)
CPT/HCPCS: 36415; 80076